=== PATIENT | male | born 1980 | race African-American/Black ===

== ENCOUNTER 2017-06-12 10:29 | Emergency (ER) | payer BC ==
[~2017-06-12] VITALS: Ht 177.8 cm; Wt 83.9 kg
[2017-06-12 11:14] LABS: ABSOLUTE NEUTROPHILS 8.8 thou/uL (1.4-8.2); BASOPHILS 0.4 % (0.0-2.0); EOSINOPHILS 0.1 % (0.0-3.0); HEMATOCRIT 40.4 % (42.0-52.0); HEMOGLOBIN 13.7 gm/dL (14.0-18.0); LYMPHOCYTES 8.2 % (24.0-44.0); MCH 30.3 pg (26.0-34.0); MCHC 33.9 g/dL (28.0-37.0); MCV 89.4 fL (80.0-100.0); MONOCYTES 8.1 % (1.0-8.0); PLATELET COUNT 247 thou/uL (150-400); POLYS 83.2 % (36.0-66.0); RBC 4.52 mil/uL (4.50-6.00); RDW 12.4 % (10.5-14.5); WBC 10.6 thou/uL (4.0-11.0)
[2017-06-12 11:31] LABS: CALCIUM 9.2 mg/dL (8.5-10.1); CREATININE 1.3 mg/dL (0.7-1.3); POTASSIUM 3.8 mmol/L (3.5-5.1)
[2017-06-12] MEDS ORDERED: IBUPROFEN 600600 M1 PO (11:47)
[2017-06-12] MEDS ORDERED: MUCINEX D TABL1 EAC1 PO (11:47)
== END 2017-06-12 12:19 | disposition home or self-care (01) ==
LOC: ER 10:29
PROVIDERS: Physician Assistant
DX: J09.X2 Influenza due to identified novel influenza A virus with other respiratory manifestations (principal)